=== PATIENT | male | born 1995 | race Caucasian/White ===

== ENCOUNTER 2017-05-17 12:50 | Emergency (ER) | payer BC ==
[2017-05-17 15:22] VITALS: BP 115/67
--- NOTE | 2017-05-17 16:21 | EDM.PDOC ---
ED HPI GENERAL MEDICAL PROBLEM - General Chief Complaint: ENT Problem Stated Complaint: L EAR PAIN Time Seen by Provider: 05/17/17 15:53 Source of Information: Reports: Patient History Limitations: Reports: No Limitations - History of Present Illness INITIAL COMMENTS - FREE TEXT/NARRATIVE: This young man comes in with pain in his left ear for about 3 or 4 days. Says it feels cannulated stopped up but he can hear okay. He stuck a Q-tip in it earlier than wonders if he might have damaged his ear. - Related Data Allergies Allergy/AdvReac Type Severity Reaction Status Date / Time No Known Allergies Allergy Verified 10/11/15 20:01 Home Meds: Home Meds NK [No Known Home Meds] 05/17/17 [History] Past Medical History Neurological History: Reports: Other (See Below) Other Neuro History: visual disurbance, currently being worked up. Social & Family History - Tobacco Use Smoking Status *Q: Never Smoker Years of Tobacco use: 6 Packs/Tins Daily: 1 - Caffeine Use Caffeine Use: Reports: None - Recreational Drug Use Recreational Drug Use: Yes Recreational Drug Type: Reports: Marijuana/Hashish Recreational Drug Use Frequency: Weekly ED ROS GENERAL - Review of Systems Review Of Systems: ROS reveals no pertinent complaints other than HPI. ED EXAM, DIZZINESS - Physical Exam Exam: See Below Exam Limited By: No Limitations General Appearance: Alert, WD/WN, No Apparent Distress Ears: Other (Left ear canal is red and moist consistent with otitis external ear canal is wet but otherwise appears to be normal no obvious evidence of otitis media. Right ear canal and TM are both normal) Throat/Mouth: Normal Inspection Course - Vital Signs Last Recorded V/S: Last Vital Signs Temp 37.2 C 05/17/17 15:21 Pulse 57 L 05/17/17 15:21 Resp 16 05/17/17 15:21 BP 115/67 05/17/17 15:21 Pulse Ox 99 05/17/17 15:21 Departure - Departure Time of Disposition: 16:19 Disposition: Home, Self-Care 01 Condition: Fair Clinical Impression: Otitis externa - Discharge Information Forms: ED Department Discharge Additional Instructions: You received a prescription for some Cortisporin otic solution. Placed 3 drops in your left ear 3 times a day for 3-5 days. This will kill any bacteria in your ear and help relieve inflammation.. See your doctor if no better in in 2 or 3 days. Tylenol and ibuprofen may help relieve pain he can take both of them simultaneously.
== END 2017-05-17 16:30 | disposition home or self-care (01) ==
LOC: JP.ED 12:50
DX: H60.92 Unspecified otitis externa, left ear (principal)
CPT/HCPCS: 99283